=== PATIENT | male | born 1970 | race Caucasian/White ===

== ENCOUNTER 2019-12-06 08:29 | Inpatient (IN) | payer OTHER ==
[~2019-12-06] VITALS: Ht 165.1 cm; Wt 66.2 kg
--- NOTE | 2019-12-06 08:56 | NUR ---
LOWER ABD PAIN since sunday w/ N/V, SEEN AT URGENT CARE AND GIVEN ANTIBIOTICS FROM PRIMARY FOR POSS RENAL INFECTION.
[2019-12-06] MEDS ORDERED: MORPHINE SULFATE 4 MG/ML, 1ML IVPush PRN ×2 (09:30→12:00)
[2019-12-06] MEDS ORDERED: SODIUM CHLORIDE FLUSH 10ML SYR IVF ONE (09:30)
[2019-12-06] MEDS ORDERED: SODIUM CHLORIDE 0.9% 1,000ML IVBOLUS ONE (09:30)
[2019-12-06] MEDS ORDERED: ONDANSETRON 2MG/ML, 2ML IVPush ONE (09:30)
[2019-12-06] MEDS ORDERED: ONDANSETRON 2MG/ML, 2ML ONE ×2 (09:44→13:03)
[2019-12-06] MEDS ORDERED: MORPHINE SULFATE 4 MG/ML, 1ML ONE (09:44)
[2019-12-06 09:47] LABS: ALANINE AMINOTRANSFERASE 63 U/L (12-78); ALBUMIN 2.9 g/dL (3.4-5.0); ANION GAP 10 mmol/L (5-15); CALCIUM 9.1 mg/dL (8.5-10.1); CHLORIDE 98 mmol/L (98-107); CREATININE 0.87 mg/dL (0.7-1.3)
[2019-12-06 09:49] LABS: ALKALINE PHOSPHATASE 148 U/L (45-117); BILIRUBIN,TOTAL 0.6 mg/dL (0.2-1.0); TOTAL PROTEIN 7.4 g/dL (6.4-8.2)
--- NOTE | 2019-12-06 09:56 | NUR ---
PATIENT MEDICATED PER eMAR, URINE SAMPLE COLLECTED AND SENT TO LAB. CALL LIGHT WITHIN REACH, CONNECTED TO VITAL SIGN MACHINE, NO FURTHER NEEDS AT THIS TIME.
[2019-12-06 10:10] LABS: MEAN CORPUSCULAR HEMOGLOBIN 29.9 pg (27.5-34.5); MEAN CORPUSCULAR HGB CONC 33.7 g/dL (33.2-36.2); MEAN CORPUSCULAR VOLUME 88.8 fL (81-97); MEAN PLATELET VOLUME 7.3 fL (7.4-10.4); PLATELET COUNT 329 x10^3/uL (130-400); RED BLOOD COUNT 4.42 x10^6/uL (4.38-5.82); RED CELL DISTRIBUTION WIDTH 12.9 % (9.4-14.8)
[2019-12-06 10:17] LABS: BASOPHILS # (AUTO) 0.02 x10^3/uL (0-0.1); BASOPHILS % (AUTO) 0 % (0-1); EOSINOPHILS % (AUTO) 0 % (1-7); LYMPHOCYTES # (AUTO) 1.12 x10^3/uL (1-3.4); LYMPHOCYTES % (AUTO) 6 % (22-44); MD SCAN; MONOCYTES # (AUTO) 1.98 x10^3/uL (0.2-0.8); MONOCYTES % (AUTO) 10 % (2-9); NEUTROPHILS # (AUTO) 16.12 x10^3/uL (1.8-6.8); NEUTROPHILS % (AUTO) 84 % (42-75)
[2019-12-06 10:18] LABS: MICROSCOPIC INDICATED
--- NOTE | 2019-12-06 10:26 | NUR ---
PATIENT TO CT.
[2019-12-06] MEDS ORDERED: OMNIPAQUE 350 MG/ML, 100ML BOTTLE ONE (10:41)
--- NOTE | 2019-12-06 11:27 | NUR ---
ERMD AT BEDSIDE TO DISCUSS POC.
[2019-12-06] MEDS ORDERED: CEFOTETAN PMX 2GM/50ML 50 ML IV ONE (11:30)
[2019-12-06] MEDS ORDERED: METRONIDAZOLE PMX 500MG/100ML 100 ML IV ONE (11:30)
[2019-12-06] MEDS ORDERED: CEFOTETAN PMX 1GM/50ML 0 ML ONE (11:42)
[2019-12-06] MEDS ORDERED: METRONIDAZOLE PMX 500MG/100ML 100 ML ONE (11:43)
--- NOTE | 2019-12-06 11:50 | NUR ---
CEFOTAN HUNG AT 100 mLs/HR, NO FURTHER NEEDS AT THIS TIME.
[2019-12-06] MEDS ORDERED: NS + 20MEQ KCL 1,000 ML IV SCH (12:00)
[2019-12-06] MEDS ORDERED: SODIUM CHLORIDE FLUSH 10ML SYR IVF PRN (12:00)
[2019-12-06] MEDS ORDERED: ONDANSETRON 2MG/ML, 2ML IVPush PRN (12:00)
--- NOTE | 2019-12-06 12:02 | NUR ---
REPORT GIVEN TO WARP PICKER.
--- NOTE | 2019-12-06 12:07 | NUR ---
RAPID COVID SWAB COLLECTED AND WALKED TO LAB.
[2019-12-06] MEDS ORDERED: BUPIVACAINE/EPI 0.5% 1:200K ONE (12:13)
--- NOTE | 2019-12-06 12:43 | NUR ---
PATIENT TRANSFERRED TO OR VIA GURNEY BY OR TECH, ALL PATIENT BELONGINGS GATHERED AND TAKEN WITH PATIENT.
[2019-12-06] MEDS ORDERED: ROCURONIUM 10MG/ML,5ML ONE (13:03)
[2019-12-06] MEDS ORDERED: SUCCINYLCHOLINE 20 MG/ML, 10ML ONE (13:03)
[2019-12-06] MEDS ORDERED: FENTANYL PF 100 MCG/2ML ONE (13:03)
[2019-12-06] MEDS ORDERED: CEFAZOLIN 1,000 MG ONE (13:03)
[2019-12-06] MEDS ORDERED: DEXAMETHASONE 4 MG/ML, 1ML ONE (13:03)
[2019-12-06] MEDS ORDERED: MIDAZOLAM 1 MG/ML, 2ML ONE (13:03)
[2019-12-06] MEDS ORDERED: NEOSTIGMINE 1 MG/ML, 10ML ONE (13:03)
[2019-12-06] MEDS ORDERED: PROPOFOL 10 MG/ML, 20ML ONE (13:03)
[2019-12-06] MEDS ORDERED: GLYCOPYRROLATE 0.2MG/1ML, 5ML ONE (13:03)
[2019-12-06] MEDS ORDERED: KETOROLAC 30 MG/1 ML ONE (13:11)
[2019-12-06] MEDS ORDERED: SUGAMMADEX 200 MG/2 ML IVPush ONE (13:11)
[2019-12-06] MEDS ORDERED: LIDOCAINE 1%, 10ML ONE (13:11)
[2019-12-06] MEDS ORDERED: BUPIVACAINE/PF-EPI 0.5% 1:200K INFIL ONE (13:28)
[2019-12-06] MEDS ORDERED: PROMETHAZINE 25 MG/ML, 1ML IVPush PRN (14:30)
[2019-12-06] MEDS ORDERED: FENTANYL PF 100 MCG/2ML IV PRN (14:30)
[2019-12-06] MEDS ORDERED: HYDROmorphone 1 MG/ML, 1ML INJ IVPush PRN (14:30)
[2019-12-06] MEDS ORDERED: LABETALOL 5MG/ML, 20ML IV PRN (14:30)
[2019-12-06] MEDS ORDERED: MEPERIDINE/PF 25MG/0.5ML IVPush PRN (14:30)
[2019-12-06] MEDS ORDERED: HYDROcodone/APAP 7.5-325MG/15ML UDC ONE (14:36)
[2019-12-06] MEDS ORDERED: HYDROcodone/APAP 7.5-325MG/15ML UDC PO ONE (15:00)
[2019-12-06 15:30] VITALS: BP 112/68
[2019-12-06] MEDS ORDERED: morphine SULFATE 10 MG/ML, 1ML IV PRN (15:30)
[2019-12-06] MEDS ORDERED: ONDANSETRON 2MG/ML, 2ML IV PRN (15:30)
[2019-12-06] MEDS: LACTATED RINGERS 1,000 ML IV SCH (16:30)
[2019-12-06] MEDS: PIPERACILLIN/TAZO/PMX 3.375GM 50 ML IV SCH ×2 (16:30→23:05)
[2019-12-06] MEDS ORDERED: ATOR10TA PO (16:46)
[2019-12-06 19:01] VITALS: BP 96/63
[2019-12-06] MEDS: KETOROLAC 30 MG/1 ML IV PRN (20:06)
[2019-12-07 01:27] VITALS: BP 103/68
[2019-12-07 03:54] VITALS: BP 90/63
[2019-12-07] MEDS: PIPERACILLIN/TAZO/PMX 3.375GM 50 ML IV SCH ×4 (05:03→22:03)
[2019-12-07] MEDS: KETOROLAC 30 MG/1 ML IV PRN ×2 (05:15→20:18)
[2019-12-07 05:48] LABS: MEAN CORPUSCULAR HEMOGLOBIN 29.8 pg (27.5-34.5); MEAN CORPUSCULAR VOLUME 90.2 fL (81-97); MEAN PLATELET VOLUME 7.1 fL (7.4-10.4); PLATELET COUNT 285 x10^3/uL (130-400); RED BLOOD COUNT 3.88 x10^6/uL (4.38-5.82)
[2019-12-07] MEDS: LACTATED RINGERS 1,000 ML IV SCH ×2 (06:21→20:24)
[2019-12-07 06:43] LABS: MD YES
[2019-12-07 06:45] LABS: <PLATELET ESTIMATE> ADEQUATE; <PLT MORPHOLOGY> NORMAL PLT MORPH; <RBC MORPHOLOGY> NORMAL; BANDS%(MANUAL) 10 % (0-7); LYMPH#(MANUAL) 1.56 x10^3/uL (1-3.4); LYMPHS% (MANUAL) 12 % (22-44); METAMYELOCYTES# (MANUAL) 0.13 x10^3/uL (0-0); METAMYELOCYTES% (MANUAL) 1 % (0-1); MONOS#(MANUAL) 0.13 x10^3/uL (0.3-2.7); MONOS% (MANUAL) 1 % (2-9); PMNS WITH VACUOLES 1+; SEG#(MANUAL) 9.88 x10^3/uL (1.8-6.8); SEGS% (MANUAL) 76 % (42-75); TOXIC GRAN 1+
[2019-12-07 07:33] VITALS: BP 96/63
[2019-12-07 12:40] VITALS: BP 98/61
[2019-12-07] MEDS: SIMETHICONE 125 MG CHEW TAB PO PRN ×2 (14:44→17:28)
[2019-12-07 19:21] VITALS: BP 103/63
[2019-12-08 01:49] VITALS: BP 101/62
[2019-12-08] MEDS: PIPERACILLIN/TAZO/PMX 3.375GM 50 ML IV SCH ×4 (04:42→22:32)
[2019-12-08] MEDS: KETOROLAC 30 MG/1 ML IV PRN ×3 (04:42→20:22)
[2019-12-08 06:40] LABS: MEAN CORPUSCULAR HEMOGLOBIN 29.5 pg (27.5-34.5); MEAN CORPUSCULAR HGB CONC 32.9 g/dL (33.2-36.2); MEAN CORPUSCULAR VOLUME 89.7 fL (81-97); MEAN PLATELET VOLUME 7.5 fL (7.4-10.4); PLATELET COUNT 357 x10^3/uL (130-400); RED BLOOD COUNT 3.94 x10^6/uL (4.38-5.82); RED CELL DISTRIBUTION WIDTH 13.1 % (9.4-14.8)
[2019-12-08 07:05] VITALS: BP 117/73
[2019-12-08 07:45] LABS: MD YES
[2019-12-08 07:46] LABS: <RBC MORPHOLOGY> NORMAL; BAND#(MANUAL) 2.13 x10^3/uL; BANDS%(MANUAL) 13 % (0-7); LYMPH#(MANUAL) 1.31 x10^3/uL (1-3.4); LYMPHS% (MANUAL) 8 % (22-44); MONOS#(MANUAL) 0.82 x10^3/uL (0.3-2.7); MONOS% (MANUAL) 5 % (2-9); SEG#(MANUAL) 12.14 x10^3/uL (1.8-6.8); SEGS% (MANUAL) 74 % (42-75)
[2019-12-08 07:47] LABS: <PLATELET ESTIMATE> ADEQUATE; <PLT MORPHOLOGY> NORMAL PLT MORPH
[2019-12-08] MEDS: LACTATED RINGERS 1,000 ML IV SCH ×2 (10:21→23:34)
[2019-12-08 13:25] VITALS: BP 103/65
[2019-12-08] MEDS: HYDROcodone/APAP 5/325 TABLET PO PRN (16:27)
[2019-12-08] MEDS: SIMETHICONE 125 MG CHEW TAB PO PRN (17:00)
[2019-12-08 19:17] VITALS: BP 111/66
[2019-12-09 00:33] VITALS: BP 124/77
[2019-12-09] MEDS: HYDROcodone/APAP 5/325 TABLET PO PRN (00:33)
[2019-12-09] MEDS: KETOROLAC 30 MG/1 ML IV PRN (04:09)
[2019-12-09] MEDS: PIPERACILLIN/TAZO/PMX 3.375GM 50 ML IV SCH ×2 (04:09→10:30)
[2019-12-09 05:52] LABS: MEAN CORPUSCULAR HEMOGLOBIN 29.9 pg (27.5-34.5); MEAN CORPUSCULAR HGB CONC 33.6 g/dL (33.2-36.2); MEAN CORPUSCULAR VOLUME 89.1 fL (81-97); PLATELET COUNT 391 x10^3/uL (130-400); RED BLOOD COUNT 3.89 x10^6/uL (4.38-5.82); RED CELL DISTRIBUTION WIDTH 13.6 % (9.4-14.8)
[2019-12-09 06:33] LABS: MD YES
[2019-12-09 06:35] LABS: <PLATELET ESTIMATE> ADEQUATE; <PLT MORPHOLOGY> NORMAL PLT MORPH; <RBC MORPHOLOGY> NORMAL; LYMPH#(MANUAL) 1.86 x10^3/uL (1-3.4); LYMPHS% (MANUAL) 14 % (22-44); SEG#(MANUAL) 11.44 x10^3/uL (1.8-6.8); SEGS% (MANUAL) 86 % (42-75)
[2019-12-09 07:45] VITALS: BP 109/70
[2019-12-09] MEDS ORDERED: HYDR-3652 PO (09:05)
[2019-12-09] MEDS ORDERED: AMOX1TAB64 PO (09:19)
[2019-12-09 10:34] VITALS: BP 111/70
== END 2019-12-09 11:10 | disposition home or self-care (01) | DRG 340 ==
LOC: ED 09:23 → EDIP 11:52 → OBSVTOIN 11:52 → 4NE 14:59 → OBSVTOIN 15:00 → INTOOBSV 15:00 → DCLOUNGE 12-09 11:00
PROVIDERS: ADMIT Surgery; ATTEND Surgery
PROC: 0DTJ4ZZ Resection of Appendix, Percutaneous Endoscopic Approach (ICD-10-PCS; principal; 2019-12-07)
PROC: 3E1M38Z Irrigation of Peritoneal Cavity using Irrigating Substance, Percutaneous Approach (ICD-10-PCS; 2019-12-07)
DX: K35.21 Acute appendicitis with generalized peritonitis, with abscess (principal); E78.5 Hyperlipidemia, unspecified; Z90.89 Acquired absence of other organs; Z91.013 Allergy to seafood; Z20.828 Contact with and (suspected) exposure to other viral communicable diseases
CPT/HCPCS: 36415; 84145; 96361; 96365; 96375; 99285; J3490; 74177; 80053; 81001; 83605; 83690; 85025; 87040; 87635; 88304; C1729; G0378; J0690; J1100; J1885; J2250; J2405; J2543; J2704; J2710; J3010; Q9967; J0330; J2270; J7030; J7120